=== PATIENT | male | born 1975 | race Two or more races ===

== ENCOUNTER 2021-11-10 17:07 | Emergency (ER) | payer MEDICAID, OTHER ==
[~2021-11-10] VITALS: Ht 167.6 cm; Wt 72.1 kg
[2021-11-10 17:36] VITALS: BP 126/94
== END 2021-11-10 20:52 | disposition left against medical advice (07) ==
LOC: ER 17:07
DX: M79.675 Pain in left toe(s) (principal); Z53.21 Procedure and treatment not carried out due to patient leaving prior to being seen by health care provider; W22.8XXA Striking against or struck by other objects, initial encounter; Y93.89 Activity, other specified; Y92.89 Other specified places as the place of occurrence of the external cause; Y99.8 Other external cause status

== ENCOUNTER 2021-12-01 19:27 | Emergency (ER) | payer MEDICAID ==
[~2021-12-01] VITALS: Ht 175.3 cm; Wt 59.0 kg
[2021-12-01 20:50] LABS: Basophils # (auto) 0 10 ^3/uL (0-0.2); Basophils % (auto) 0.4 % (0.0-2.0); Eosinophils # (auto) 0.1 10 ^3/uL (0-0.8); Eosinophils % (auto) 0.8 % (0.0-7.0); Hematocrit 48.4 % (41.0-53.0); Hemoglobin 17.3 g/dL (13.5-17.5); Lymphocytes # (auto) 2.9 10 ^3/uL (0.4-5.4); Mean Corpuscular Hemoglobin 34.3 pg (28.0-32.0); Mean Corpuscular Hgb Conc. 35.8 g/dL (32.0-36.0); Mean Corpuscular Volume 95.7 fL (80.0-100.0); Monocytes # (auto) 1.1 10 ^3/uL (0-1.3); Monocytes % (auto) 8.1 % (0.0-12.0); Neutrophils # (auto) 8.9 10 ^3/uL (1.6-8.6); Neutrophils % (auto) 68.7 % (37.0-80.0); Red Blood Cells 5.06 10^6/uL (4.5-5.90); Red Cell Distribution Width 12.8 % (11.8-14.3)
[2021-12-01 21:05] LABS: INR 1.09 (0.9-1.15); Partial Thromboplastin Time 28.5 sec (23.6-33.0)
[2021-12-01 21:08] LABS: Anion Gap 8 (5-15); Blood Urea Nitrogen 15 mg/dL (7-18); Calcium 9.4 mg/dL (8.5-10.1); Carbon Dioxide 26 mmol/L (21-32); Chloride 106 mmol/L (98-107); Glucose 95 mg/dL (74-106); Magnesium 2.2 mg/dL (1.6-2.6); Potassium 3.4 mmol/L (3.5-5.1); Sodium 140 mmol/L (136-145)
[2021-12-01 21:13] LABS: Alanine Aminotransferase 24 U/L (16-61); Alkaline Phosphatase 77 U/L (45-117); Aspartate Aminotransferase 21 U/L (15-37); BUN/Creatinine Ratio 16.5; Blood Alcohol < 3.0 mg/dL (0-5); GFR African American 115 mL/min; GFR Non-African American 95 mL/min; Total Protein 7.2 g/dL (6.4-8.2)
[2021-12-01] MEDS: levETIRAcetam 500 MG TAB PO ONE (23:46)
[2021-12-01] MEDS: levETIRAcetam 500 MG/5ML INJ IV ONE (23:48)
[2021-12-01 23:50] VITALS: BP 122/67
== END 2021-12-01 23:50 | disposition left against medical advice (07) ==
LOC: ER 19:27 → EDBD 19:27 → ER 23:50
DX: R56.9 Unspecified convulsions (principal); E11.9 Type 2 diabetes mellitus without complications
CPT/HCPCS: 36415; 70450; 71045; 72125; 80053; 80320; 82550; 82553; 83605; 83735; 84484; 85025; 85610; 85730; 99285; J1953; J7060

== ENCOUNTER 2023-06-15 19:37 | Emergency (ER) | payer MEDICAID ==
[~2023-06-15] VITALS: Ht 167.6 cm; Wt 65.8 kg
[2023-06-15] MEDS ORDERED: SODIUM CHLORIDE 0.9% 1,000 ML IV ONE (20:00)
[2023-06-15 20:17] LABS: Basophils # (auto) 0 10 ^3/uL (0-0.2); Basophils % (auto) 0.5 % (0.0-2.0); Eosinophils # (auto) 0 10 ^3/uL (0-0.8); Eosinophils % (auto) 0.7 % (0.0-7.0); Hematocrit 40.9 % (41.0-53.0); Hemoglobin 13.9 g/dL (13.5-17.5); Lymphocytes # (auto) 1.1 10 ^3/uL (0.4-5.4); Lymphocytes % (auto) 23.7 % (10.0-50.0); Mean Corpuscular Volume 97.2 fL (80.0-100.0); Monocytes # (auto) 0.4 10 ^3/uL (0-1.3); Monocytes % (auto) 8.6 % (0.0-12.0); Neutrophils # (auto) 3.1 10 ^3/uL (1.6-8.6); Neutrophils % (auto) 66.5 % (37.0-80.0); Red Blood Cells 4.21 10^6/uL (4.5-5.90); Red Cell Distribution Width 12.2 % (11.8-14.3); White Blood Cell 4.7 10^3/uL (4.4-10.8)
[2023-06-15 20:35] LABS: Alanine Aminotransferase 41 U/L (7-40); Alkaline Phosphatase 227 U/L (46-116); Anion Gap 6 (5-15); Aspartate Aminotransferase 57 U/L (13-40); BUN/Creatinine Ratio 10.1 (10.0-20.0); Blood Urea Nitrogen 14 mg/dL (9-23); Calcium 8.5 mg/dL (8.7-10.4); Carbon Dioxide 27 mmol/L (20-30); Chloride 93 mmol/L (98-107); Potassium 4.5 mmol/L (3.5-5.1); Sodium 126 mmol/L (136-145)
[2023-06-15 20:36] LABS: Albumin 3.9 g/dL (3.2-4.8); Bilirubin, Total 0.6 mg/dL (0.2-1.0); Total Protein 6.3 g/dL (5.7-8.2)
[2023-06-15 21:03] LABS: Glucose 825 mg/dL (74-106)
[2023-06-15 21:04] LABS: Amphetamine Screen, Urine Pos (NEGATIVE); Barbiturate Scree,Urine Neg (NEGATIVE); Benzodiazephine Screen, Urine Neg (NEGATIVE); Cannabinoid Screen, Urine Neg (NEGATIVE); Cocaine Screen, Urine Neg (NEGATIVE); Opiate Scree,Urine Neg (NEGATIVE); Phencyclidine Screen, Urine Neg (NEGATIVE)
[2023-06-15] MEDS ORDERED: InsuLIN REG 1unit/0.01ml Soln (100units/ml) IV ONE ×2 (21:15)
[2023-06-16] MEDS ORDERED: InsuLIN REG 1unit/0.01ml Soln (100units/ml) ONE (00:58)
[2023-06-16 02:26] VITALS: BP 136/98; PULSE 98; RESP 16; TEMP 98.8; O2SAT 99
== END 2023-06-16 02:26 | disposition home or self-care (01) ==
LOC: EDBD 19:37 → ER 19:37
DX: S81.802A Unspecified open wound, left lower leg, initial encounter (principal); E11.65 Type 2 diabetes mellitus with hyperglycemia; E86.0 Dehydration; F15.10 Other stimulant abuse, uncomplicated; R79.89 Other specified abnormal findings of blood chemistry; I10 Essential (primary) hypertension; E78.5 Hyperlipidemia, unspecified; Z91.199 Patient's noncompliance with other medical treatment and regimen due to unspecified reason; Z88.0 Allergy status to penicillin; Z88.1 Allergy status to other antibiotic agents; X58.XXXA Exposure to other specified factors, initial encounter; Y93.89 Activity, other specified; Y92.89 Other specified places as the place of occurrence of the external cause; Y99.8 Other external cause status
CPT/HCPCS: 36415; 80053; 80307; 82010; 83605; 85025; 96361; 96374; 99283; J1815; J7030